=== PATIENT | male | born 1980 | race Hispanic/Latino ===

== ENCOUNTER 2017-09-03 06:57 | Outpatient (RCR) | payer OTHER | END 2017-09-04 | LOC: PT 06:57 | PROVIDERS: ATTEND Neurological Surgery | DX: M51.16 Intervertebral disc disorders with radiculopathy, lumbar region (principal); M53.2X6 Spinal instabilities, lumbar region; M53.86 Other specified dorsopathies, lumbar region; M62.81 Muscle weakness (generalized) ==

== ENCOUNTER 2017-09-24 13:00 | Outpatient (RCR) | payer OTHER | END 2017-10-04 | LOC: PT 13:00 | PROVIDERS: ATTEND Neurological Surgery | DX: M51.16 Intervertebral disc disorders with radiculopathy, lumbar region (principal) ==

== ENCOUNTER 2017-10-08 13:11 | Outpatient (RCR) | payer OTHER | END 2017-11-04 | LOC: PT 13:11 | PROVIDERS: ATTEND Neurological Surgery | DX: M51.16 Intervertebral disc disorders with radiculopathy, lumbar region (principal) ==